=== PATIENT | male | born 1935 | race Caucasian/White ===

== ENCOUNTER 2018-03-08 11:08 | Emergency (ER) | payer OTHER ==
[~2018-03-08 11:08] MED LIST: ASPI-555 PO; ATOR40TA71 PO; CLOP75TA32 PO; ERGO400T3 PO; FISH1CAP63 PO; GLIP10TA9 PO; GLIP5TAB11 PO; LEVO25TA54 PO; LINA5TAB PO; LORA10TA7 PO; TURM500C9 PO
== END 2018-03-08 12:33 | disposition home or self-care (01) ==
LOC: EDH 11:08
DX: S86.811A Strain of other muscle(s) and tendon(s) at lower leg level, right leg, initial encounter (principal); I25.10 Atherosclerotic heart disease of native coronary artery without angina pectoris; E07.9 Disorder of thyroid, unspecified; Z87.891 Personal history of nicotine dependence; Z96.652 Presence of left artificial knee joint; X58.XXXA Exposure to other specified factors, initial encounter; Y93.89 Activity, other specified; Y92.89 Other specified places as the place of occurrence of the external cause; Y99.8 Other external cause status
CPT/HCPCS: 73562